=== PATIENT | male | born 1990 | race Caucasian/White ===

== ENCOUNTER → 2019-06-14 07:17 | Day surgery (SDC) | payer OTHER ==
[~2019-06-14 07:17] MED LIST: Acetaminophen IV 1GM/100ML * 1,000 MG/100 ML VIAL IVPB ONE; Acetaminophen IV 1GM/100ML * 100 ML ONE; Buffered Lidocaine 1% SYRIN* 1 ML/SYRINGE INTRADERM ONE; Bupivacaine 0.5%* 50 ML MDV VIAL ONE; DiMENhydriNATE IV* 50 MG/ML VIAL IV PUSH PRN; DiMENhydriNATE IV* 50 MG/ML VIAL ONE; Lactated Ringers 1000 ML Bag* 1,000 ML IV SCH; Lidocaine 2% PF * 5 ML VIAL ONE; Naloxone* 0.4 MG/ML 1 ML VIAL IV PRN; Propofol* 10 MG/ML 20 ML BTL ONE; Sodium Citrate/Citric Acid* 15 ML UDC ONE; Sodium Citrate/Citric Acid* 15 ML UDC PO ONE; ceFAZolin 2 GM in NS PREMIX(*) 2 GM/100 ML BAG IVPB ONE; fentaNYL* 50 MCG/ML 2 ML VIAL (100 MCG VIAL) ONE; oxyCODONE/Acetamin 5/325 MG* TAB ONE
--- NOTE | 2019-06-14 12:15 | OP ---
Operative Report - Blank - Operative Report Date of Operation: 06/14/19 Note: PATIENT: Rodri Jennings DATE OF : 1990 DATE OF SURGERY: 06/14/2019 SURGEON: Sukhjinder Tom MD WAREHOUSE WORKER: CRESCENCIO Lazaro, whos assistance was necessary for positioning, retraction, help with instrumentation, and closure. ANESTHESIOLOGIST: Dr. Proctor PREOPERATIVE DIAGNOSIS: Right midfoot Charcot neuroarthopathy POSTOPERATIVE DIAGNOSIS: Right midfoot Charcot neuroarthopathy OPERATION: 1. Right midfoot fusions of the 1st, 2nd and 3rd tarsometatarsal joints 2. Autogenous bone grafting with right proximal tibial bone graft. ANESTHESIA: General IMPLANTS: Arthrex CFS plate and screws, 4.0mm cannulated screw, and nitinol compression humza. TOURNIQUET TIME: Less than 2 hours with a well-padded thigh tourniquet at 250 mmHg SPECIMENS: none ESTIMATED BLOOD LOSS: minimal COMPLICATIONS: none STATUS: Stable from the operating room to the recovery room and then home. INDICATIONS FOR PROCEDURE: Jesus is a type 1 diabetic who sustained a midfoot injury over a year ago and developed midfoot charcot neuroarthropathy with persistent pain. He has tried extensive conservative treatment without improvement and he feels he has exhausted non-op treatment. Both operative and non operative treatment alternatives were reviewed. Further, the nature and risks of surgery were reviewed in careful detail, in the office as well as the pre-operative holding area. Our discussions regarding the risks of surgery included, but were not limited to, infection, wound problems, nerve injury, neuroma, RSD, persistent symptoms, persistent pain and swelling, blood clot, fracture, nonunion, malunion , hardware pain, need for further surgery, persistent pain and symptoms, failure of the surgery, and even the remote chance of catastrophic complication. It was made very clear that his diabetes increases his risk of complications. DESCRIPTION OF PROCEDURE: The patient was seen in the preoperative holding unit and informed written consent was obtained. The appropriate extremity was marked. The patient was then brought to the operating room and carefully positioned on the operating room table. Anesthesia was induced. All bony prominences were padded with great care. A well-padded thigh tourniquet was placed. A chlorhexidine based pre- scrub was performed followed by a chloraprep prep and drape in standard sterile fashion. A surgical safety pause was then conducted in which we confirmed the appropriate patient, extremity, planned procedure, availability of equipment, indication and administration of prophylactic antibiotics, and DVT prophylaxis in the form of a compression boot on the non-surgical extremity. We began with an Esmarch exsanguination of the limb and inflated the tourniquet. I utilized a longitudinal incision over the first TMT joint. A second longitudinal incision was made over the third TMT joint. Careful dissection was taken down to the level of the bones and the joints were exposed in a subperiosteal manner. As expected, arthritis and deformity was encountered in the 1st, 2nd and 3rd TMT joints. These joints were exposed with the use of laminar spreaders and Hintermann retractors. Any remaining cartilage was removed. Large dorsal osteophytes were excised. The joints were then prepared for fusion by using curettes, burrs, osteotomes. Attention was then turned to the right proximal tibia. A small incision was made over Gerdy's tubercle and I carefully dissected down to bone. A bur was used to make a small window in the cortical bone. A curette was then used to harvest cancellous autograft. The incision site for the bone graft was then copiously irrigated and closed in layers utilizing 3-0 Monocryl and 3-0 nylon. A sterile dressing was applied. The bone graft was then placed into the prior-prepared midfoot joints, which were then reduced. A dorsomedial plate was placed along the first TMT joint. Screws were placed with excellent purchase. I then used a large Martinez clamp to reduce the second metatarsal base to the medial cuneiform. A 4.0 mm cannulated screw was placed from the medial cuneiform into the second metatarsal base. This provided excellent compression. I then placed a compression staple from the second metatarsal base into the middle cuneiform. I then used the Martinez clamp to reduce the third metatarsal base to the second TMT joint. 2 compression humza were placed, one from the middle cuneiform to the third metatarsal and the other from the lateral cuneiform into the third metatarsal. Excellent compression across the joints was achieved. I then placed and the remaining bone graft into the dorsal aspect of the joints. Demineralized bone matrix was then packed at the dorsal aspect of the 3 TMT joints there were fused. Fluoroscopy was used throughout and at the end, final fluoroscopic images were obtained. At this point, we irrigated copiously and then closed in layers meticulously utilizing 3-0 Monocryl and 3-0 nylon for the skin. A sterile dressing was then applied followed by a splint with the ankle in a neutral position. The patient was then awakened from anesthesia and transferred to the recovery room in stable condition. There were no complications. All needle and sponge counts were correct at the end of the case. ATTESTATION: I attest I was present and scrubbed and performed the critical portions of the procedure myself. POSTOPERATIVE PLAN: Follow up will be in 2 weeks for likely suture removal and postop x-rays. The postoperative plan is to be [id number] for 2 months , then weight-bearing as tolerated in a boot.
[2019-06-14] MEDS: fentaNYL* 50 MCG/ML 2 ML VIAL (100 MCG VIAL) IV PRN ×2 (12:20→12:36)
[2019-06-14 14:05] VITALS: BP 143/90
== END | disposition home or self-care (01) ==
LOC: OR 07:17
PROVIDERS: ATTEND Orthopaedic Surgery
DX: E10.610 Type 1 diabetes mellitus with diabetic neuropathic arthropathy (principal); Z72.0 Tobacco use; Z79.4 Long term (current) use of insulin
CPT/HCPCS: 76000; A9270-GY; C1713; C1776; C9359; J0690; J1240; J2704; J3010; J3490